=== PATIENT | female | born 1950 | race Caucasian/White ===

== ENCOUNTER 2019-02-18 11:12 | Emergency (ER) | payer MEDICARE ==
[~2019-02-18] VITALS: Ht 152.4 cm; Wt 61.2 kg
[~2019-02-18 11:12] MED LIST: DIPH25CA83 PO; LEVO80CA PO
--- NOTE | 2019-02-18 11:13 | NUR ---
BIB [facility] FROM HOME,FRIEND CALLED 911 WHEN SHE FAILED TO SHOW UP FOR LUNCH. STATED "I THINK I HAD A SEIZURE", ALSO C/O HEADACHE AND R ABDOMINAL PAIN. HX OF SEIZURE, PER PT, LAST EPISODE WAS AUG 2017. TAKING TRILEPTAL, WASN'T ABLE TO DRINKL THIS AM. TO ER BED 4, HOOKED TO MONITOR, CHANGED TO GOWN, PROVIDED W WARM BLANKET, AWAITING MD NEWSOME, SEIZURE PRECAUTIONS APPLIED.
--- NOTE | 2019-02-18 12:00 | NUR ---
DR PETERSON AT BEDSIDE
[2019-02-18] MEDS ORDERED: CHLORDIAZEPOXIDE HCL 25 MG CAPSULE ONE (12:07)
--- NOTE | 2019-02-18 12:10 | NUR ---
PT REFUSED LIBRIUM 50MG PO. MADE DR PETERSON AWARE
--- NOTE | 2019-02-18 12:29 | NUR ---
URINE SAMPLE SENT TO LAB.
[2019-02-18] MEDS ORDERED: CHLORDIAZEPOXIDE HCL 25 MG CAPSULE PO ONE (12:30)
[2019-02-18 12:32] LABS: BASOPHILS # (AUTO) 0.1 /CMM (0.0-0.2); BASOPHILS % (AUTO) 0.5 % (0.0-2.0); HEMATOCRIT 44 % (33-45); HEMOGLOBIN 14.9 g/dL (11.5-14.8); LYMPHOCYTES # (AUTO) 0.4 /CMM (0.8-4.8); LYMPHOCYTES % (AUTO) 2.9 % (20.0-44.0); MEAN CORPUSCULAR HGB CONC 34 g/dl (31.0-36.0); MEAN CORPUSCULAR VOLUME 96 fL (82-100); MONOCYTES # (AUTO) 0.3 /CMM (0.1-1.30); MONOCYTES % (AUTO) 2.3 % (2.0-12.0); NEUTROPHILS # (AUTO) 13.9 /CMM (1.8-8.9); NEUTROPHILS % (AUTO) 94.3 % (43.0-81.0); PLATELET COUNT (AUTO) 293 /CMM (150-450); RED BLOOD CELL COUNT(AUTO) 4.58 MIL/uL (4.0-5.2); WHITE BLOOD COUNT (AUTO) 14.7 K/uL (4.3-11.0)
[2019-02-18 12:47] LABS: CARBON DIOXIDE 19 mmol/L (21-32); CHLORIDE 98 mmol/L (98-107); CREATININE 0.7 mg/dL (0.6-1.3); GLUCOSE 135 mg/dL (74-106); POTASSIUM 3.8 mmol/L (3.5-5.1); SODIUM SERUM 135 mmol/L (136-145); UREA NITROGEN, BLOOD 10 mg/dL (7-18)
[2019-02-18 12:50] LABS: ALCOHOL, BLOOD < 3 mg/dL (0-0)
[2019-02-18] MEDS ORDERED: ACETAMINOPHEN ES 500 MG TABLET ONE (13:25)
[2019-02-18] MEDS ORDERED: ACETAMINOPHEN ES 500 MG TABLET PO ONE (13:30)
[2019-02-18] MEDS ORDERED: LamoTRIgine 25 MG TABLET PO SCH (14:00)
--- NOTE | 2019-02-18 14:34 | NUR ---
Patient discharged to home in stable condition. Written and verbal after care instructions given. Patient verbalizes understanding of instruction.
--- NOTE | 2019-02-18 14:37 | NUR ---
PT AMBULATORY W STEADY GAIT. PT ASSISTED TO WAITING ROOM WHILE AWAITING FOR BROTHER.
[2019-02-18 14:38] VITALS: BP 127/70
[2019-02-19] MEDS ORDERED: OXCA300T15 PO (13:25)
[2019-02-23] MEDS ORDERED: OXCA150T13 PO ×2 (14:54)
== END 2019-02-18 14:39 | disposition home or self-care (01) ==
LOC: ER 11:16
DX: G40.909 Epilepsy, unspecified, not intractable, without status epilepticus (principal); F32.9 Major depressive disorder, single episode, unspecified; F12.10 Cannabis abuse, uncomplicated; F10.239 Alcohol dependence with withdrawal, unspecified; F17.200 Nicotine dependence, unspecified, uncomplicated; Y90.0 Blood alcohol level of less than 20 mg/100 ml; Z60.2 Problems related to living alone; Z91.013 Allergy to seafood; Z98.890 Other specified postprocedural states
CPT/HCPCS: 36415; 80048-TC; 80305; 85025-TC; G0480

== ENCOUNTER 2019-02-18 21:19 | Inpatient (IN) | payer MEDICARE ==
[~2019-02-18] VITALS: Ht 162.6 cm; Wt 63.1 kg
--- NOTE | 2019-02-18 22:45 | NUR ---
PT CAME FROM HOME, C/O N/V X 4 DAYS/ W INDIGESTION AND BURNING EPIGASTRIC PAIN AND H/A, VS STABLE, AFEBRILE, PLACED ON ER BED 12, AWAITING TO BE EVAL BY ER MD, NO ACTIVE EPISODES AT THIS TIME.
[2019-02-18] MEDS ORDERED: ONDANSETRON HCL/PF 4 MG/2 ML VIAL IVP ONE (23:00)
[2019-02-18] MEDS ORDERED: HYDROMORPHONE INJ 2 MG/ML DISP.SYRIN IV ONE (23:00)
[2019-02-18] MEDS ORDERED: IV NS 0.9% 1,000 ML BAG IV ONE (23:00)
[2019-02-18] MEDS ORDERED: ONDANSETRON HCL/PF 4 MG/2 ML VIAL ONE (23:07)
[2019-02-18] MEDS ORDERED: HYDROMORPHONE 1 MG/1 ML DISP.SYRIN ONE (23:07)
[2019-02-18] MEDS ORDERED: LORAZEPAM INJ 2 MG/ML VIAL ONE (23:21)
[2019-02-18 23:25] LABS: CALCIUM, SERUM 9.3 mg/dL (8.5-10.1); CARBON DIOXIDE 19 mmol/L (21-32); CHLORIDE 96 mmol/L (98-107); CREATININE 0.7 mg/dL (0.6-1.3); GLUCOSE 115 mg/dL (74-106); SODIUM SERUM 135 mmol/L (136-145); UREA NITROGEN, BLOOD 9 mg/dL (7-18)
[2019-02-18 23:26] LABS: BASOPHILS # (AUTO) 0.1 /CMM (0.0-0.2); BASOPHILS % (AUTO) 0.8 % (0.0-2.0); HEMATOCRIT 43 % (33-45); HEMOGLOBIN 14.8 g/dL (11.5-14.8); LYMPHOCYTES # (AUTO) 0.9 /CMM (0.8-4.8); LYMPHOCYTES % (AUTO) 6.2 % (20.0-44.0); MEAN CORPUSCULAR HGB CONC 34 g/dl (31.0-36.0); MEAN CORPUSCULAR VOLUME 96 fL (82-100); MONOCYTES # (AUTO) 0.9 /CMM (0.1-1.30); MONOCYTES % (AUTO) 5.9 % (2.0-12.0); NEUTROPHILS # (AUTO) 12.6 /CMM (1.8-8.9); NEUTROPHILS % (AUTO) 87.1 % (43.0-81.0); PLATELET COUNT (AUTO) 297 /CMM (150-450); RED BLOOD CELL COUNT(AUTO) 4.54 MIL/uL (4.0-5.2); WHITE BLOOD COUNT (AUTO) 14.5 K/uL (4.3-11.0)
[2019-02-18] MEDS ORDERED: LORAZEPAM INJ 2 MG/ML VIAL IV ONE (23:30)
[2019-02-18 23:31] LABS: ALANINE AMINOTRANSFERASE 55 U/L (12-78); ALBUMIN 4.2 g/dL (3.4-5.0); ALKALINE PHOSPHATASE 67 U/L (46-116); ASPARTATE AMINOTRANSFERASE 78 U/L (15-37); BILIRUBIN,DIRECT 0.2 mg/dL (0.0-0.2); BILIRUBIN,TOTAL 0.9 mg/dL (0.2-1.0); SALICYLATE 3.2 mg/dL (2.8-20.0); TOTAL PROTEIN, SERUM 7.8 g/dL (6.4-8.2)
[2019-02-18 23:33] LABS: ACETAMINOPHEN 0 ug/ml (10-30); ALCOHOL, BLOOD < 3 mg/dL (0-0)
[2019-02-18 23:44] LABS: THYROID STIMULATING HORMONE 0.708 uIU/mL (0.358-3.74)
[2019-02-19] MEDS ORDERED: IV NS 0.9% 1,000 ML IV PRN (00:44)
[2019-02-19] MEDS ORDERED: MAGNESIUM HYDROXIDE 30 ML UDC PO PRN (01:00)
[2019-02-19] MEDS ORDERED: Z GUARD REMEDY 2 OZ OINT TP PRN (01:00)
[2019-02-19] MEDS ORDERED: MAG HYDROX/AL HYDROX/SIMETH 30 ML UDC PO PRN (01:00)
[2019-02-19] MEDS ORDERED: ACETAMINOPHEN 325 MG TABLET PO PRN (01:00)
[2019-02-19] MEDS ORDERED: HYDROCODONE/APAP 10/325MG 1 EA TABLET PO PRN (01:00)
--- NOTE | 2019-02-19 01:29 | NUR ---
PT ASSIGNED TO 308-2
--- NOTE | 2019-02-19 02:35 | NUR ---
RN ADMITTING NOTES RECEIVED REPORT FROM SUBSTATION DESIGNER MARQUITA. Pt IS A/OX3, VERBAL, ABLE TO MAKE NEEDS KNOWN. NO S/S OF ACUTE DISTRESS OR SOB NOTED. RESPIRATIONS EVEN AND UNLABORED. IV ACCESS ON RFA #20G. SAFETY MEASURES IN PLACE. BED LOW, LOCKED, HOB ELEVATED, SIDE RAILS UP, CALL LIGHT AND BEDSIDE TABLE WITHIN REACH. WILL CONTINUE TO MONITOR Pt's CONDITION AND SAFETY THROUGHOUT THE NIGHT.
[2019-02-19 03:00] VITALS: BP 121/60
--- NOTE | 2019-02-19 07:00 | NUR ---
RN CLOSING NOTES NO SIGNIFICANT CHANGES IN Pt's CONDITION. Pt IS STABLE AT THIS TIME. NO S/S OF ACUTE DISTRESS OR SOB NOTED DURING THE SHIFT. Pt IS RESTING IN BED COMFORTABLY. RESPIRATIONS EVEN AND UNLABORED. ALL NEEDS MET AND ATTENDED TO. SAFETY MEASURES IN PLACE. WILL ENDORSE TO DAYSHIFT RN FOR Pt's ROBERTO CARLOS.
[2019-02-19] MEDS: PANTOPRAZOLE 40 MG VIAL IV SCH (07:30)
--- NOTE | 2019-02-19 07:42 | NUR ---
M/S RN NOTES PATIENT AWAKE IN BED, ALERT AND ORIENTED X3. NO RESPIRATORY DISTRESS NOTED, BREATHING EVEN AND UNLABORED. PATIENT ABLE TO MAKE NEEDS KNOWN. DENIES ANY PAIN AT THIS TIME. SKIN WARM TO TOUCH. IVF OF NS AT 75ML/HR INFUSING WELL ON RFA #20G, PATENT AND INTACT, NO REDNESS, NO INFILTRATION. PATIENT'S BED ON LOW AND LOCKED POSITION. CALL LIGHT WITHIN REACH. WILL CONTINUE TO MONITOR.
[2019-02-19 08:42] VITALS: BP 119/67
[2019-02-19] MEDS ORDERED: LEVOMILNACIPRAN HYDROCHLORIDE 80 MG PO SCH (09:00)
[2019-02-19] MEDS: HYDROCODONE/APAP 5/325MG 1 EACH TABLET PO PRN (11:42)
[2019-02-19] MEDS ORDERED: OXCA300T15 PO (13:25)
[2019-02-19 17:34] VITALS: BP 119/69
[2019-02-19] MEDS: IV NS 0.9% 1,000 ML IV PRN (18:02)
[2019-02-19] MEDS: OXCARBAZEPINE 150 MG TABLET PO SCH (18:30)
--- NOTE | 2019-02-19 18:30 | NUR ---
MS/RN - End of shift summary Patient in no acute distress, able to tolerate clear liquids, nausea improved, no seizure activity seen. IVF NS increased to 100 ml/hr, infusing well on the RFA with no signs of infiltration. Patient for CT abdomen without contrast, NPO for breakfast, labs in AM. Pending psych consult with Dr. Rodriguez. All needs attended. Will continue with current medical management.
[2019-02-19] MEDS: ONDANSETRON HCL/PF 4 MG/2 ML VIAL IVP PRN (18:31)
[2019-02-19 18:47] LABS: BASOPHILS # (AUTO) 0.1 /CMM (0.0-0.2); BASOPHILS % (AUTO) 0.9 % (0.0-2.0); EOSINOPHILS % (AUTO) 0.1 % (0.0-6.0); HEMATOCRIT 41 % (33-45); HEMOGLOBIN 13.7 g/dL (11.5-14.8); LYMPHOCYTES # (AUTO) 1.6 /CMM (0.8-4.8); LYMPHOCYTES % (AUTO) 12.4 % (20.0-44.0); MEAN CORPUSCULAR HGB CONC 34 g/dl (31.0-36.0); MEAN CORPUSCULAR VOLUME 94 fL (82-100); MONOCYTES # (AUTO) 0.8 /CMM (0.1-1.30); MONOCYTES % (AUTO) 6.7 % (2.0-12.0); NEUTROPHILS # (AUTO) 10.1 /CMM (1.8-8.9); NEUTROPHILS % (AUTO) 79.9 % (43.0-81.0); PLATELET COUNT (AUTO) 271 /CMM (150-450); RED BLOOD CELL COUNT(AUTO) 4.34 MIL/uL (4.0-5.2); WHITE BLOOD COUNT (AUTO) 12.6 K/uL (4.3-11.0)
[2019-02-19 18:51] LABS: CALCIUM, SERUM 8.7 mg/dL (8.5-10.1); CREATININE 0.5 mg/dL (0.6-1.3)
[2019-02-19 18:56] LABS: POTASSIUM 2.8 mmol/L (3.5-5.1)
--- NOTE | 2019-02-19 18:59 | NUR ---
MS/RN - Critical lab Lab called for critical potassium level of 2.8, relayed to Cinthia Mcclellan NP. Awaiting for orders. Endorsed to night RN accordingly.
--- NOTE | 2019-02-19 19:13 | NUR ---
Patient lives locally with a roommate. She is ambulatory and independent with adl's. Has no DME or homehealth reported. No dc planning needs identified at this time. Addendum: 02/19/19 at 1913 by LUZ AGUIAR RN Amended: Links added.
--- NOTE | 2019-02-19 19:15 | NUR ---
RN OPEN NOTES RECEIVED PATIENT AWAKE IN BED. A/O X3. NO SIGNS OF DISTRESS OR DISCOMFORT. BREATHING EVEN AND UNLABORED. IV ACCESS IN RFA, PATENT AND INTACT, NO SIGNS OF REDNESS OR INFILTRATION. DENIES ANY N&V AT THIS TIME. BED IN LOW LOCKED POSITION WITH SIDE RAILS X2. CALL LIGHT WITHIN REACH. WILL CONTINUE TO MONITOR.
[2019-02-19 19:16] LABS: APPEARANCE,URINE CLEAR (CLEAR); BILIRUBIN,URINE 1+ (NEGATIVE); BLOOD, URINE TRACE Ery/uL (NEGATIVE); COLOR,URINE YELLOW (YELLOW); KETONES,URINE 3+ (NEGATIVE); LEUKOCYTE ESTERASE ,URINE NEGATIVE (NEGATIVE); NITRITE, URINE NEGATIVE (NEGATIVE); PROTEIN,URINE TRACE mg/dl (NEGATIVE); UGLUCOSE NEGATIVE (NEGATIVE); UROBILINOGEN,URINE 0.2 EU/dL (0.2)
--- NOTE | 2019-02-19 19:18 | NUR ---
MS/RN - Order Telephone order obtained from Cinthia Mcclellan NP to give Potassium Chloride 60 meq po once.
[2019-02-19 19:26] LABS: BACTERIA,URINE Few /HPF (None Seen); RBC,URINE 0-2 /HPF (0-2); SQUAMOUS EPITHELIAL CELL,UR Few /HPF (None Seen)
[2019-02-19] MEDS ORDERED: POTASSIUM CHLORIDE 20 MEQ TAB.PRT.SR PO ONE (19:30)
[2019-02-19 20:00] VITALS: BP 127/74
[2019-02-20] MEDS: ONDANSETRON HCL/PF 4 MG/2 ML VIAL IVP PRN ×2 (00:21→12:59)
--- NOTE | 2019-02-20 06:30 | NUR ---
RN NOTES ADMINISTERED NORCO 5/325 ORDERED FOR HEADACHE AND R RIB PAIN /10. NO COMPLICATIONS NOTED. WILL CONTINUE TO MONITOR.
[2019-02-20] MEDS: HYDROCODONE/APAP 5/325MG 1 EACH TABLET PO PRN (06:34)
--- NOTE | 2019-02-20 07:34 | NUR ---
RN CLOSING NOTES PATIENT AWAKE IN BED. A/O X3. NO SIGNS OF DISTRESS OR DISCOMFORT. BREATHING EVEN AND UNLABORED. IV ACCESS IN L HAND WITH NS INFUSING, PATENT AND INTACT, NO SIGNS OF REDNESS OR INFILTRATION. DENIES ANY N&V AT THIS TIME. ALL NEEDS MET. NO SIGNIFICANT CHANGES THROUGH THE NIGHT. BED IN LOW LOCKED POSITION WITH SIDE RAILS X2. CALL LIGHT WITHIN REACH. ENDORSED TO AM SHIFT FOR ROBERTO CARLOS.
--- NOTE | 2019-02-20 07:59 | NUR ---
RN OPENING NOTES PT AWAKE AND RESTING IN BED. AWAITING PSYCH EVAL. PT ON CLEAR LIQUID DIET. PT HAS A LEFT HAND #20 IV INTACT AND PATENT RUNNING NS @100 ML/HR. SAFETY PRECAUTIONS IN PLACE, BED IN LOWEST LOCKED POSITION, X2 SIDE RAILS UP AND CALL LIGHT WITHIN REACH. WILL CONTINUE TO MONITOR.
[2019-02-20 08:00] VITALS: BP 106/63
[2019-02-20] MEDS: OXCARBAZEPINE 150 MG TABLET PO SCH ×2 (08:14→21:01)
[2019-02-20] MEDS: PANTOPRAZOLE 40 MG VIAL IV SCH (08:14)
[2019-02-20 08:26] LABS: BASOPHILS % (AUTO) 0.5 % (0.0-2.0); EOSINOPHILS % (AUTO) 0.3 % (0.0-6.0); HEMATOCRIT 38 % (33-45); HEMOGLOBIN 13.2 g/dL (11.5-14.8); LYMPHOCYTES # (AUTO) 1.2 /CMM (0.8-4.8); LYMPHOCYTES % (AUTO) 12.5 % (20.0-44.0); MEAN CORPUSCULAR HGB CONC 35 g/dl (31.0-36.0); MEAN CORPUSCULAR VOLUME 93 fL (82-100); MONOCYTES # (AUTO) 0.7 /CMM (0.1-1.30); MONOCYTES % (AUTO) 7.4 % (2.0-12.0); NEUTROPHILS # (AUTO) 7.3 /CMM (1.8-8.9); NEUTROPHILS % (AUTO) 79.3 % (43.0-81.0); PLATELET COUNT (AUTO) 252 /CMM (150-450); WHITE BLOOD COUNT (AUTO) 9.2 K/uL (4.3-11.0)
[2019-02-20 08:30] LABS: ALBUMIN 3.1 g/dL (3.4-5.0); BILIRUBIN,DIRECT 0.2 mg/dL (0.0-0.2); BILIRUBIN,TOTAL 0.9 mg/dL (0.2-1.0); CALCIUM, SERUM 8.6 mg/dL (8.5-10.1); CREATININE 0.4 mg/dL (0.6-1.3); MAGNESIUM 1.8 mg/dL (1.8-2.4); PHOSPHORUS 1.9 mg/dL (2.5-4.9); TOTAL PROTEIN, SERUM 6.1 g/dL (6.4-8.2)
[2019-02-20 09:27] LABS: THYROID STIMULATING HORMONE 0.864 uIU/mL (0.358-3.74)
[2019-02-20] MEDS ORDERED: NEUTRA PHOS 1 POWD.PACKET PO ONE (11:00)
[2019-02-20] MEDS: POTASSIUM CHLORIDE 20 MEQ POWDER PACKET PO SCH ×3 (11:29→12:02)
[2019-02-20] MEDS ORDERED: OXCARBAZEPINE 150 MG TABLET PO ONE (12:30)
[2019-02-20] MEDS: IV NS 0.9% 1,000 ML IV PRN (13:43)
--- NOTE | 2019-02-20 15:00 | NUR ---
CRICKET WATKINS CATHETER REMOVED. Addendum: 02/20/19 at 1640 by GEO MAYORGA RN WRONG PATIENT
[2019-02-20 16:00] VITALS: BP 130/68
--- NOTE | 2019-02-20 18:46 | NUR ---
RN CLOSING NOTES PT AWAKE AND RESTING IN BED. FAMILY AT BEDSIDE. PT VERY MANIPULATIVE, PT ON CLEAR LIQUID DIET. PT HAS A LEFT HAND #20 IV INTACT AND PATENT RUNNING NS @100 ML/HR. SAFETY PRECAUTIONS IN PLACE, BED IN LOWEST LOCKED POSITION, X2 SIDE RAILS UP AND CALL LIGHT WITHIN REACH. WILL ENDORSE TO STENCIL CUTTER FOR CONTINUITY OF CARE.
--- NOTE | 2019-02-20 19:20 | NUR ---
RN OPEN NOTES RECEIVED PATIENT AWAKE IN BED. A/O X3. NO SIGNS OF DISTRESS OR DISCOMFORT. BREATHING EVEN AND UNLABORED. IV ACCESS IN L HAND, PATENT AND INTACT, NO SIGNS OF REDNESS OR INFILTRATION. DENIES ANY N&V AT THIS TIME. BED IN LOW LOCKED POSITION WITH SIDE RAILS X2. CALL LIGHT WITHIN REACH. WILL CONTINUE TO MONITOR.
[2019-02-20 20:00] VITALS: BP 129/84
[2019-02-21] MEDS: IV NS 0.9% 1,000 ML IV PRN ×2 (04:14→15:27)
--- NOTE | 2019-02-21 06:47 | NUR ---
RN CLOSING NOTES PATIENT AWAKE IN BED. A/O X3. NO SIGNS OF DISTRESS OR DISCOMFORT. BREATHING EVEN AND UNLABORED. IV ACCESS IN R HAND WITH NS INFUSING, PATENT AND INTACT, NO SIGNS OF REDNESS OR INFILTRATION. DENIES ANY N&V AT THIS TIME. ALL NEEDS MET. NO SIGNIFICANT CHANGES THROUGH THE NIGHT. BED IN LOW LOCKED POSITION WITH SIDE RAILS X2. CALL LIGHT WITHIN REACH. WILL ENDORSE TO AM SHIFT FOR ROBERTO CARLOS.
--- NOTE | 2019-02-21 07:15 | NUR ---
RN NOTES WENT IN PATIENT ROOM FOR CHANGE OF SHIFT ENDORSEMENT. PATIENT FOUND LAYING ON FLOOR NEXT TO BED. ASSISTED PATIENT TO BED. PATIENT STATES SHE DID NOT HIT ANY PART OF HER BODY AND ACTUALLY PUT HERSELF ONTO THE FLOOR. ASKED PATIENT WHY SHE WOULD PUT HERSELF ONTO THE FLOOR, PATIENT STATED SHE WAS BENDING DOWN TO ANSWER HER CELLPHONE AND GET HER GLASSES AND PUT HERSELF ONTO THE FLOOR BECAUSE SHE DID NOT WANT TO PRESS THE CALL LIGHT FOR ASSISTANCE. STATES SHE KNEW WE WERE DOING CHANGE OF SHIFT AND DID NOT WANT TO BE BOTHERSOME BY PRESSING THE CALL LIGHT. ADVISED PATIENT TO USE CALL LIGHT FOR ANY ASSISTANCE. BED ALARM ON. SIDE RAILS X3. CALL LIGHT WITHIN REACH. CHARGE NURSE AND NURSING BASS GUITAR TEACHER MADE AWARE.
--- NOTE | 2019-02-21 07:45 | NUR ---
MS RN NOTES CATY BUNCH [employer] TRUCK DRIVER MADE AWARE OF PATIENT CONDITION. NO NEW ORDERS AT THIS TIME. WILL CONTINUE TO MONITOR
[2019-02-21 07:46] LABS: CALCIUM, SERUM 8.3 mg/dL (8.5-10.1); CREATININE 0.5 mg/dL (0.6-1.3); PHOSPHORUS 2.8 mg/dL (2.5-4.9)
[2019-02-21 08:00] VITALS: BP 106/61
[2019-02-21 08:07] LABS: POTASSIUM 2.8 mmol/L (3.5-5.1)
[2019-02-21] MEDS: PANTOPRAZOLE 40 MG VIAL IV SCH (08:14)
[2019-02-21] MEDS: HYDROCODONE/APAP 5/325MG 1 EACH TABLET PO PRN (08:14)
[2019-02-21] MEDS: OXCARBAZEPINE 150 MG TABLET PO SCH ×2 (08:14→22:20)
[2019-02-21] MEDS ORDERED: POTASSIUM CHLORIDE 20 MEQ POWDER PACKET PO SCH (10:00)
[2019-02-21 16:00] VITALS: BP 138/73
--- NOTE | 2019-02-21 16:10 | NUR ---
MS RN NOTES HEARD PATIENT'S BED ALARM. UPON ARRIVING AT PATIENT'S ROOM. PATIENT FOUND ON THE FLOOR LYING ON HER ABDOMEN, SHAKING. SHAKING LASTED FOR 5 SECONDS. AFTERWARDS, PATIENT INSTANTLY TURNED TO SIT ON THE FLOOR. WITH COMPLETE RECOLLECTION OF WHAT HAPPENED. PATIENT ALERT AND ORIENTED. VERBALIZED THAT SHE HAD A SEIZURE AND WAS ON THE FLOOR. DENIES ANY PAIN OR DISCOMFORT. NO CHANGES IN LOC NOTED. NO EPISODE OF INCONTINENCE NOTED. BREATHING EVEN AND UNLABORED. PATIENT THEN ASKED TO CHECK HER EYEGLASSES AND TO HAVE HER PHONE CHARGED. SKIN CHECK DONE, NO NEW SKIN BREAKDOWN NOTED. PATIENT ASSISTED BACK TO BED. SAFETY PRECAUTIONS PLACED. CATY BUNCH NP MADE AWARE, NO NEW ORDERS AT THIS TIME. CHARGE NURSE AWARE. WILL CONTINUE TO MONITOR. BED LOCKED AND IN LOW POSITION. BILATERAL UPPER SIDE RAILS UP AND LOCKED. CALL LIGHT WITHIN EASY REACH
--- NOTE | 2019-02-21 18:38 | NUR ---
MS RN NOTES PATIENT RESTING INSIDE ROOM. AWAKE, ALERT AND ORIENTED, VERBALLY RESPONSIVE AND RESPONDS TO VERBAL AND TACTILE STIMULI. NO CHANGES IN LOC NOTED AT THIS TIME. DENIES ANY PAIN OR DISCOMFORT. PATIENT KEPT CLEAN, DRY AND COMFORTABLE. SAFETY PRECAUTIONS IN PLACE. WILL ENDORSE TO INCOMING SHIFT FOR ROBERTO CARLOS. BED LOCKED AND IN LOW POSITION. BILATERAL UPPER SIDE RAILS UP AND LOCKED. CALL LIGHT WITHIN EASY REAC
--- NOTE | 2019-02-21 19:35 | NUR ---
MS RN NOTES RECEIVED PATIENT RESTING INSIDE ROOM. AWAKE, ALERT AND ORIENTED, VERBALLY RESPONSIVE AND RESPONDS TO VERBAL AND TACTILE STIMULI. IV ACCESS INTACT AND PATENT, NO CHANGES IN LOC NOTED AT THIS TIME. DENIES ANY PAIN OR DISCOMFORT. PATIENT KEPT CLEAN, DRY AND COMFORTABLE. SAFETY PRECAUTIONS IN PLACE. SEIZURE PRECAUTIONS IN EMPHASIZED, WILL MONITOR ACCORDINGLY.
[2019-02-21 20:00] VITALS: BP 130/70
[2019-02-21] MEDS ORDERED: OXCARBAZEPINE 150 MG TABLET PO SCH (23:00)
[2019-02-21] MEDS ORDERED: OXCARBAZEPINE 150 MG TABLET PO ONE (23:00)
[2019-02-22] MEDS: HYDROCODONE/APAP 5/325MG 1 EACH TABLET PO PRN (06:22)
[2019-02-22 06:29] LABS: BASOPHILS # (AUTO) 0.1 /CMM (0.0-0.2); BASOPHILS % (AUTO) 0.7 % (0.0-2.0); EOSINOPHILS % (AUTO) 0.1 % (0.0-6.0); HEMATOCRIT 39 % (33-45); HEMOGLOBIN 13.6 g/dL (11.5-14.8); MEAN CORPUSCULAR HGB CONC 35 g/dl (31.0-36.0); MEAN CORPUSCULAR VOLUME 93 fL (82-100); MONOCYTES # (AUTO) 0.6 /CMM (0.1-1.30); MONOCYTES % (AUTO) 5.9 % (2.0-12.0); NEUTROPHILS # (AUTO) 8.3 /CMM (1.8-8.9); NEUTROPHILS % (AUTO) 83.3 % (43.0-81.0); PLATELET COUNT (AUTO) 261 /CMM (150-450); RED BLOOD CELL COUNT(AUTO) 4.18 MIL/uL (4.0-5.2); WHITE BLOOD COUNT (AUTO) 9.9 K/uL (4.3-11.0)
[2019-02-22 06:41] LABS: CREATININE 0.5 mg/dL (0.6-1.3); MAGNESIUM 1.7 mg/dL (1.8-2.4); POTASSIUM 3.2 mmol/L (3.5-5.1)
--- NOTE | 2019-02-22 07:14 | NUR ---
MS RN NOTES RECEIVED PATIENT RESTING INSIDE ROOM. AWAKE, ALERT AND ORIENTED, VERBALLY RESPONSIVE AND RESPONDS TO VERBAL AND TACTILE STIMULI. IV ACCESS INTACT AND PATENT, NO CHANGES IN LOC NOTED AT THIS TIME. NORCO GIVEN FOR COMPLAINTS OF HEAD PATIENT KEPT CLEAN, DRY AND COMFORTABLE. SAFETY PRECAUTIONS IN PLACE. SEIZURE PRECAUTIONS IN EMPHASIZED, KONSTANTIN CALLED, UPDATED HER REGARDING PATIENTS CURRENT STATUS, WILL ENDORSE TO AM NURSE FOR CONTINUITY OF CARE.
--- NOTE | 2019-02-22 07:33 | NUR ---
MS RN OPENING NOTE RECEIVED PATIENT IN BED. SLEEPING, EASILY AROUSED WITH VERBAL STIMULI, ORIENTED X3, ON ROOM AIR, TOLERATING WELL. IN NO APPARENT DISTRESS OR DISCOMFORT AT THIS TIME. RESPIRATIONS EVEN AND UNLABORED. DENIES PAIN AND SOB. PATIENT IS ABLE TO COMMUNICATE NEEDS.RIGHT HAND 20G IVC WITH FLUIDS RUNNING AT 100ML/HR, PATENT AND INTACT. PATIENT KEPT CLEAN AND COMFORTABLE. SAFETY MEASURES IN PLACE, BED IN LOW LOCKED POSITION, SIDE RAILS UP X3, CALL LIGHT WITHIN EASY REACH. WILL CONTINUE TO MONITOR.
[2019-02-22 08:00] VITALS: BP 124/76
[2019-02-22] MEDS: PANTOPRAZOLE 40 MG VIAL IV SCH (08:53)
[2019-02-22] MEDS: OXCARBAZEPINE 150 MG TABLET PO SCH (08:54)
[2019-02-22] MEDS: LORAZEPAM 1 MG TABLET PO PRN ×2 (09:54→18:03)
[2019-02-22] MEDS: Magnesium 1GM/D5W 100ML PREMIX 100 ML IV SCH ×2 (11:36→12:49)
[2019-02-22] MEDS: POTASSIUM CHLORIDE 20 MEQ TAB.PRT.SR PO SCH ×2 (11:36→12:48)
[2019-02-22 16:00] VITALS: BP 120/61
--- NOTE | 2019-02-22 18:00 | NUR ---
PATIENT EXPERIENCING FREQUENT SEIZURES. PER ORDERS ATIVAN 2MG ADMINISTERED AT THIS TIME. WILL CONTINUE TO MONITOR.
--- NOTE | 2019-02-22 19:49 | NUR ---
MS RN CLOSING NOTE PATIENT IN BED. SLEEPING, EASILY AROUSED WITH VERBAL STIMULI, ORIENTED X3, ON ROOM AIR, TOLERATING WELL. IN NO APPARENT DISTRESS OR DISCOMFORT AT THIS TIME. RESPIRATIONS EVEN AND UNLABORED. DENIES PAIN AND SOB. PATIENT IS ABLE TO COMMUNICATE NEEDS. RIGHT HAND 20G IVC WITH FLUIDS RUNNING AT 100ML/HR, PATENT AND INTACT. PATIENT KEPT CLEAN AND COMFORTABLE. ALL NEEDS ATTENDED, ORDERS RENDERED, SAFETY MEASURES IN PLACE, BED IN LOW LOCKED POSITION, SIDE RAILS UP X3, SEIZURE PRECAUTIONS OBSERVED, CALL LIGHT WITHIN EASY REACH. WILL ENDORSE TO PM NURSE FOR ROBERTO CARLOS.
--- NOTE | 2019-02-22 19:50 | NUR ---
RN NOTES RECEIVED PATIENT IN BED. SLEEPING, EASILY AROUSED WITH VERBAL STIMULI, ORIENTED X3, ON ROOM AIR, TOLERATING WELL, NO SIGNS OF ACUTE RESPIRATORY DISTRESS OR DISCOMFORT AT THIS TIME. RESPIRATIONS EVEN AND UNLABORED. DENIES PAIN AND SOB. PATIENT IS ABLE TO COMMUNICATE NEEDS.PERIPHERAL IV SITE ON HER RIGHT HAND 20G WITH FLUIDS RUNNING AT 100ML/HR, PATENT AND INTACT. PATIENT KEPT CLEAN AND COMFORTABLE. SAFETY MEASURES IN PLACED, BED IN LOW LOCKED POSITION, SIDE RAILS UP X3, CALL LIGHT WITHIN EASY REACH. WILL MONITOR ACCORDINGLY.
[2019-02-22] MEDS ORDERED: OXCARBAZEPINE 150 MG TABLET PO SCH ×2 (22:00)
[2019-02-23] MEDS: IV NS 0.9% 1,000 ML IV PRN (04:50)
[2019-02-23 06:55] LABS: CALCIUM, SERUM 8.5 mg/dL (8.5-10.1); CREATININE 0.5 mg/dL (0.6-1.3); MAGNESIUM 2.3 mg/dL (1.8-2.4); POTASSIUM 3.2 mmol/L (3.5-5.1)
--- NOTE | 2019-02-23 07:10 | NUR ---
MS RN NOTES PATIENT IN BED ALERT ORIENTED X 3. NO ACUTE DISTRESS NOTED. BREATHING UNLABORED. NO SOB NOTED. DENIED ANY PAIN AT TIME. IV ACCESS PATENT AND INTACT, NO REDNESS OR SWELLING NOTED. SAFETY MEASURES IN PLACE, CALL LIGHT WITHIN REACH. WILL CONTINUE TO MONITOR ACCORDINGLY.
--- NOTE | 2019-02-23 07:11 | NUR ---
RN NOTES PATIENT IN BED. ABLE TO REST AND SLEEP AT INTERVALS, EASILY AROUSED WITH VERBAL STIMULI, ORIENTED X3, ON ROOM AIR, TOLERATING WELL, NO SIGNS OF ACUTE RESPIRATORY DISTRESS OR DISCOMFORT AT THIS TIME. RESPIRATIONS EVEN AND UNLABORED. DENIES PAIN AND SOB. PATIENT IS ABLE TO COMMUNICATE NEEDS.PERIPHERAL IV SITE ON HER RIGHT HAND 20G WITH FLUIDS RUNNING AT 100ML/HR, PATENT AND INTACT. PATIENT KEPT CLEAN AND COMFORTABLE. SAFETY MEASURES IN PLACED, BED IN LOW LOCKED POSITION, SIDE RAILS UP X3, ASSISTED TO BEDSIDE COMMODE, CALL LIGHT WITHIN EASY REACH. WILL ENDORSE TO AM NURSE FOR CONTINUITY OF CARE.
[2019-02-23 08:00] VITALS: BP 128/70
[2019-02-23] MEDS: PANTOPRAZOLE 40 MG VIAL IV SCH (08:05)
[2019-02-23] MEDS: OXCARBAZEPINE 150 MG TABLET PO SCH (08:08)
[2019-02-23] MEDS ORDERED: POTASSIUM CHLORIDE 20 MEQ TAB.PRT.SR PO ONE (09:00)
[2019-02-23] MEDS ORDERED: OXCA150T13 PO ×2 (14:54)
--- NOTE | 2019-02-23 15:01 | NUR ---
MS RN NOTES SEEN AND EVALUATED BY TAMMI HOLMAN NP WOLYLY NEW ORDERS MADE, NOTED AND CARRIED OUT.
--- NOTE | 2019-02-23 15:45 | NUR ---
MS DIGITAL EXPERIENCE MANAGER NOTES PATIENT DISCHARGED TO [facility] WITH STABLE VITAL SIGNS, REPORT GIVEN TO RITA HARLEY. ALERT ORIENTED X 3. NO ACUTE DISTRESS NOTED. BREATHING UNLABORED. NO SOB NOTED. DENIED ANY PAIN AT TIME. IV ACCESS REMOVED, NO REDNESS OR SWELLING NOTED. DISCHARGE INSTRUCTIONS GIVEN TO THE PATIENT, VERBALIZED UNDERSTANDING. DISCHARGE PAPERS HANDED OVER TO EMT PERSONNEL TO BE GIVEN TO [facility] AND BOX BUILDER. ALL BELONGINGS ACCOUNTED FOR INCLUDING BELONGINGS TAKEN FROM [facility] FRANCK. PICKED UP VIA AMBULANCE IN A GURNEY ACCOMPANIED BY 2 EMT PERSONNEL AND BROTHER KANNAN IN STABLE CONDITION.
== END 2019-02-23 15:50 | DRG 101 ==
LOC: ER 21:19 → MED 02-19 01:37
PROVIDERS: ADMIT Nurse Practitioner Acute Care; ATTEND Hospitalist
DX: G40.909 Epilepsy, unspecified, not intractable, without status epilepticus (principal); E87.1 Hypo-osmolality and hyponatremia; F32.9 Major depressive disorder, single episode, unspecified; G93.9 Disorder of brain, unspecified; F45.9 Somatoform disorder, unspecified; Z91.013 Allergy to seafood; E87.6 Hypokalemia; D72.829 Elevated white blood cell count, unspecified; Z87.81 Personal history of (healed) traumatic fracture; Z98.890 Other specified postprocedural states; E03.9 Hypothyroidism, unspecified; F41.9 Anxiety disorder, unspecified; G93.0 Cerebral cysts; Z91.19 Patient's noncompliance with other medical treatment and regimen; Z91.14 Patient's other noncompliance with medication regimen; K44.9 Diaphragmatic hernia without obstruction or gangrene
CPT/HCPCS: 36415; 71046; 74150-TC; 80048-TC; 80061-TC; 80076-TC; 80305; 81000-TC; 83605-TC; 83735-TC; 84100-TC; 84443-TC; 84484-TC; 85025-TC; 87040-TC; 87081-TC; 87086-TC; 95819-TC; C9113; G0378; G0480; J1170; J2060; J2405; J3475; J7030